=== PATIENT | female | born 1940 | race Caucasian/White ===

== ENCOUNTER 2016-11-23 22:01 | Inpatient (IN) | payer MEDICAID, OTHER ==
[~2016-11-23] VITALS: Ht 154.9 cm; Wt 59.0 kg
[~2016-11-23 22:01] MED LIST: insulin
[2016-11-23] MEDS ORDERED: SODIUM CHLORIDE 0.9% 1000ML BAG (SEPSIS BOLUS) IV ONE (23:15)
[2016-11-23 23:30] LABS: HEMOGLOBIN. 11.2 g/dL (12.0-16.0); MEAN CORPUSCULAR HEMOGLOBIN 27.7 pg (28.0-32.0); MEAN CORPUSCULAR HGB CONC 33.8 g/dL (31.0-37.0); MEAN CORPUSCULAR VOLUME 81.9 fL (81.0-99.0); PLATELET 245 x1000/uL (130-400); RED BLOOD CELL COUNT 4.03 mill/uL (4.2-5.4); RED CELL DISTRIBUTION WIDTH 14.3 % (11.6-14.6); WHITE BLOOD COUNT 10.3 x1000/uL (4.5-11.0)
[2016-11-23 23:36] LABS: DIFFERENTIAL COMMENT 1
[2016-11-23 23:47] LABS: ALANINE AMINOTRANSFERASE 35 IU/L (13-61); ALBUMIN 3.6 g/dL (3.4-5.0); ANION GAP 14; CALCIUM 9.4 mg/dL (8.5-10.1); CARBON DIOXIDE 24 mEq/L (21-32); CHLORIDE 111 mEq/L (98-107); ETHANOL BLOOD < 10 mg/dL; INDEX HEMOLYSI 1 (1-3); INDEX ICTERIC 1 (1-4); INDEX LIPEMIC 1 (1-3); LIPASE 70 IU/L (73-393); TROPONIN I 0.03 ng/mL (0.00-0.04); UREA NITROGEN BLOOD 18 mg/dL (7-21); eGFR > 60 mL/min (>60)
[2016-11-23 23:49] LABS: PROTHROMBIN TIME 10.3 sec
[2016-11-23 23:56] LABS: AMMONIA 16 uMol/L (<32); INDEX HEMOLYSI 1 (1-3)
[2016-11-24 00:06] LABS: LACTIC ACID 2.9 mmol/L (0.4-2.0)
[2016-11-24 00:09] LABS: PLATELET ESTIMATE NORMAL
[2016-11-24] MEDS ORDERED: DEXTROSE 50% WATER 50ML SYRINGE IV ONE (00:15)
[2016-11-24] MEDS ORDERED: LORAZEPAM 2MG/ML CPJ IV ONE (00:45)
[2016-11-24 00:54] LABS: CLARITY URINE CLEAR (CLEAR); COLOR URINE YELLOW (YELLOW); GLUCOSE URINE 3+ (NEGATIVE); KETONES URINE 1+ (NEGATIVE); LEUKOCYTE ESTERASE URINE 2+ (NEGATIVE); NITRITE URINE NEGATIVE (NEGATIVE); OCCULT BLOOD URINE NEGATIVE (NEGATIVE); PH URINE 7.5 (4.5-8.0); PROTEIN URINE NEGATIVE (NEGATIVE); SPECIFIC GRAVITY URINE 1.018 (1.005-1.030); UROBILINOGEN URINE 0.2 E.U./dL (0.2-1.0)
[2016-11-24] MEDS ORDERED: VANCOMYCIN 1 G PREMIX 200 ML IV SCH (01:30)
[2016-11-24] MEDS ORDERED: PIPERACILLIN/TAZ 3.375G PREMIX 50 ML IV ONE (01:30)
[2016-11-24 03:52] LABS: SQUAMOUS EPITHELIAL CELL URINE FEW /lpf (RARE/1+)
[2016-11-24 03:55] LABS: RBC URINE 0-2 /hpf (0-2)
[2016-11-24 03:56] LABS: BACTERIA URINE TRACE
[2016-11-24 12:00] VITALS: BP 131/65
[2016-11-24] MEDS ORDERED: METF850T2 PO (13:01)
[2016-11-24] MEDS ORDERED: DEXTROSE 50% WATER 50ML SYRINGE IV PRN (13:15)
[2016-11-24] MEDS ORDERED: CLONIDINE 0.1MG TABLET PO PRN (13:15)
[2016-11-24] MEDS ORDERED: IPRATROPIUM/ALBUTEROL 0.5-3(2.5)MG/3ML NEB INH PRN (13:15)
[2016-11-24] MEDS ORDERED: ACETAMINOPHEN 325MG TABLET PO PRN (13:15)
[2016-11-24] MEDS ORDERED: ACETAMINOPHEN 650MG/20.3ML UDC GT PRN (13:15)
[2016-11-24] MEDS ORDERED: ACETAMINOPHEN 650MG SUPP PR PRN (13:15)
[2016-11-24] MEDS ORDERED: ONDANSETRON HCL 4MG/2ML VIAL IV PRN (13:15)
[2016-11-24] MEDS ORDERED: NA PHOS,M-B/NA PHOS,DI-BA ENEMA 118ML PR PRN (13:15)
[2016-11-24] MEDS ORDERED: MAGNESIUM/ALUMINUM HYDROXIDE/SIMETHICONE 30ML UDC PO PRN (13:15)
[2016-11-24] MEDS: INSULIN LISPRO 100 UNITS/ML SUBCUT SCH ×3 (13:20→21:21)
[2016-11-24 14:30] VITALS: BP 131/65
[2016-11-24] MEDS: SODIUM CHLORIDE 0.9% INJ 3ML FLUSH IVF SCH ×2 (15:48→21:22)
[2016-11-24] MEDS: ENOXAPARIN 40MG/0.4ML SYR SUBCUT SCH (15:48)
[2016-11-24 16:00] VITALS: BP 114/57
[2016-11-24] MEDS ORDERED: PNEUMOCOCCAL 23-VAL P-SAC VAC 0.5 ML IM ONE (16:00)
[2016-11-24 16:56] LABS: BASOPHILS % 1.3 % (0.0-2.0); EOSINOPHILS % 2.8 % (0.0-5.0); HEMATOCRIT. 32.3 % (36.0-48.0); HEMOGLOBIN. 10.2 g/dL (12.0-16.0); LYMPHOCYTES % 44.1 % (20.0-50.0); MEAN CORPUSCULAR HEMOGLOBIN 27.5 pg (28.0-32.0); MEAN CORPUSCULAR HGB CONC 31.7 g/dL (31.0-37.0); MEAN CORPUSCULAR VOLUME 86.7 fL (81.0-99.0); MEAN PLATELET VOLUME 10.4 fl (7.4-10.4); MONOCYTES % 7.8 % (2.0-8.0); PLATELET 240 x1000/uL (130-400); RED BLOOD CELL COUNT 3.73 mill/uL (4.2-5.4); RED CELL DISTRIBUTION WIDTH 14.4 % (11.6-14.6); WHITE BLOOD COUNT 8.3 x1000/uL (4.5-11.0)
[2016-11-24 17:12] LABS: ALANINE AMINOTRANSFERASE 26 IU/L (13-61); ALBUMIN 2.6 g/dL (3.4-5.0); ANION GAP 14; CARBON DIOXIDE 23 mEq/L (21-32); CHLORIDE 109 mEq/L (98-107); CREATINE KINASE 558 IU/L (26-192); INDEX HEMOLYSI 1 (1-3); INDEX ICTERIC 1 (1-4); INDEX LIPEMIC 1 (1-3); TROPONIN I 0.02 ng/mL (0.00-0.04); UREA NITROGEN BLOOD 12 mg/dL (7-21); eGFR > 60 mL/min (>60)
[2016-11-24] MEDS: BLOOD SUGAR DIAGNOSTIC STRIP TEST SCH ×2 (17:38→21:21)
[2016-11-24] MEDS ORDERED: LEVOFLOXACIN 500MG PREMIX 100 ML IV SCH (18:00)
[2016-11-24] MEDS: SODIUM CHLORIDE 0.9% 1,000 ML IV SCH (19:22)
[2016-11-24] MEDS: CEFTRIAXONE 1 G PREMIX 50 ML IV SCH (19:25)
[2016-11-24 20:00] VITALS: BP 122/43
[2016-11-25] VITALS: BP 108/48
[2016-11-25 00:55] LABS: TROPONIN I 0.03 ng/mL (0.00-0.04)
[2016-11-25] MEDS ORDERED: LORAZEPAM 2MG/ML CPJ IV PRN (01:00)
[2016-11-25] MEDS: SODIUM CHLORIDE 0.9% 1,000 ML IV SCH ×2 (01:38→14:18)
[2016-11-25 04:00] VITALS: BP 106/58
[2016-11-25] MEDS: BLOOD SUGAR DIAGNOSTIC STRIP TEST SCH ×4 (06:02→20:48)
[2016-11-25] MEDS: SODIUM CHLORIDE 0.9% INJ 3ML FLUSH IVF SCH ×3 (06:13→21:20)
[2016-11-25] MEDS: INSULIN LISPRO 100 UNITS/ML SUBCUT SCH ×4 (06:14→21:20)
[2016-11-25 07:33] LABS: CHLORIDE 112 mEq/L (98-107); INDEX HEMOLYSI 1 (1-3); INDEX ICTERIC 1 (1-4); INDEX LIPEMIC 1 (1-3)
[2016-11-25 07:46] LABS: ALANINE AMINOTRANSFERASE 29 IU/L (13-61); ALBUMIN 2.4 g/dL (3.4-5.0); ANION GAP 13; CALCIUM 7.9 mg/dL (8.5-10.1); CARBON DIOXIDE 24 mEq/L (21-32); HDL CHOLESTEROL 45 mg/dL (40-59); LDL CHOLESTEROL 74 mg/dL (5-100); TRIGLYCERIDE 109 mg/dL (0-150); UREA NITROGEN BLOOD 12 mg/dL (7-21); eGFR > 60 mL/min (>60)
[2016-11-25 08:43] VITALS: BP 117/65
[2016-11-25] MEDS ORDERED: CEFTRIAXONE SODIUM 1 G/VIAL IV SCH (09:00)
[2016-11-25 10:01] LABS: BASOPHILS % 0.7 % (0.0-2.0); EOSINOPHILS % 1.7 % (0.0-5.0); HEMATOCRIT. 28.6 % (36.0-48.0); HEMOGLOBIN. 9.6 g/dL (12.0-16.0); LYMPHOCYTES % 29.1 % (20.0-50.0); MEAN CORPUSCULAR HEMOGLOBIN 27.7 pg (28.0-32.0); MEAN CORPUSCULAR HGB CONC 33.7 g/dL (31.0-37.0); MEAN CORPUSCULAR VOLUME 82.3 fL (81.0-99.0); MEAN PLATELET VOLUME 9.7 fl (7.4-10.4); MONOCYTES % 7.3 % (2.0-8.0); NEUTROPHILS % 61.2 % (40.0-76.0); PLATELET 238 x1000/uL (130-400); RED BLOOD CELL COUNT 3.47 mill/uL (4.2-5.4); RED CELL DISTRIBUTION WIDTH 13.9 % (11.6-14.6); WHITE BLOOD COUNT 7.6 x1000/uL (4.5-11.0)
[2016-11-25 12:31] VITALS: BP 133/79
[2016-11-25 16:00] VITALS: BP 121/57
[2016-11-25] MEDS: LEVOFLOXACIN 250MG PREMIX 50 ML IV SCH (16:45)
[2016-11-25] MEDS: ENOXAPARIN 40MG/0.4ML SYR SUBCUT SCH (16:45)
[2016-11-25] MEDS: CEFTRIAXONE 1 G PREMIX 50 ML IV SCH (17:21)
[2016-11-25 20:00] VITALS: BP 134/60
[2016-11-26 00:08] VITALS: BP 118/52
[2016-11-26] MEDS: SODIUM CHLORIDE 0.9% 1,000 ML IV SCH (01:47)
[2016-11-26 04:01] VITALS: BP 140/65
[2016-11-26] MEDS: SODIUM CHLORIDE 0.9% INJ 3ML FLUSH IVF SCH ×2 (06:43→15:22)
[2016-11-26] MEDS: BLOOD SUGAR DIAGNOSTIC STRIP TEST SCH ×2 (06:47→11:54)
[2016-11-26] MEDS: INSULIN LISPRO 100 UNITS/ML SUBCUT SCH ×2 (07:52→11:51)
[2016-11-26 08:41] VITALS: BP 121/57
[2016-11-26 12:10] VITALS: BP 131/60
[2016-11-26] MEDS ORDERED: LEVO500T15 PO (13:43)
[2016-11-26 14:50] VITALS: BP 131/60
[2016-11-26] MEDS: LEVOFLOXACIN 250MG PREMIX 50 ML IV SCH (15:22)
[2016-11-26 16:38] VITALS: BP_SYST 135; BP_SYST 141; BP_DIAS 66; BP_DIAS 83
== END 2016-11-26 17:52 | disposition home or self-care (01) | DRG 420 ==
LOC: ER 11-24 04:57 → 5WST 11-24 14:41
PROVIDERS: ADMIT Family Medicine; ATTEND Family Medicine
DX: E11.649 Type 2 diabetes mellitus with hypoglycemia without coma (principal); E43 Unspecified severe protein-calorie malnutrition; G93.41 Metabolic encephalopathy; E87.2 Acidosis; N39.0 Urinary tract infection, site not specified; R65.10 Systemic inflammatory response syndrome (SIRS) of non-infectious origin without acute organ dysfunction; D63.8 Anemia in other chronic diseases classified elsewhere; Z68.24 Body mass index [BMI] 24.0-24.9, adult; Z90.49 Acquired absence of other specified parts of digestive tract
CPT/HCPCS: 36415; 51702; 70450; 70551; 71010; 80053; 80061; 81001; 82140; 82550; 82962; 83605; 83690; 84484; 85025; 85610; 87040; 87086; 90732; 93005; 96361; 96365; 96367; 96372; 97162; 99285; G0482; J0696; J1650; J1815; J1956; J2060; J2543; J3370; J7030

== ENCOUNTER 2019-05-05 07:48 | Emergency (ER) | payer OTHER ==
[~2019-05-05] VITALS: Ht 152.4 cm; Wt 79.0 kg
[~2019-05-05 07:48] MED LIST changes: +LEVO500T2 PO; +METF-415 PO
[2019-05-05 09:30] LABS: BASOPHILS % 0.5 % (0.0-2.0); EOSINOPHILS % 0.5 % (0.0-5.0); HEMATOCRIT. 38.1 % (36.0-48.0); HEMOGLOBIN. 12.4 g/dL (12.0-16.0); LYMPHOCYTES % 14.3 % (20.0-50.0); MEAN CORPUSCULAR HEMOGLOBIN 27.6 pg (28.0-32.0); MEAN PLATELET VOLUME 9.4 fl (7.4-10.4); NEUTROPHILS % 79.7 % (40.0-76.0); PLATELET 305 x1000/uL (130-400); RED BLOOD CELL COUNT 4.48 mill/uL (4.2-5.4); RED CELL DISTRIBUTION WIDTH 13.4 % (11.6-14.6)
[2019-05-05 09:37] LABS: CHLORIDE 105 mEq/L (98-107)
[2019-05-05 11:13] LABS: CLARITY URINE CLEAR (CLEAR); COLOR URINE YELLOW (YELLOW); KETONES URINE NEGATIVE (NEGATIVE); LEUKOCYTE ESTERASE URINE 2+ (NEGATIVE); NITRITE URINE POSITIVE (NEGATIVE); OCCULT BLOOD URINE NEGATIVE (NEGATIVE); PROTEIN URINE NEGATIVE (NEGATIVE); SPECIFIC GRAVITY URINE 1.011 (1.005-1.030); UROBILINOGEN URINE 0.2 E.U./dL (0.2-1.0)
[2019-05-05 12:05] VITALS: BP 99/54
== END 2019-05-05 12:09 | disposition home or self-care (01) ==
LOC: ER 07:48
DX: E11.649 Type 2 diabetes mellitus with hypoglycemia without coma (principal); T38.3X5A Adverse effect of insulin and oral hypoglycemic [antidiabetic] drugs, initial encounter; Z79.4 Long term (current) use of insulin; Z90.49 Acquired absence of other specified parts of digestive tract; Y92.018 Other place in single-family (private) house as the place of occurrence of the external cause
CPT/HCPCS: 36415; 71045; 81003; 82962; 87077; 87186; 93005; 99284